=== PATIENT | female | born 1970 | race Caucasian/White ===

== ENCOUNTER → 2016-09-20 | Outpatient (CLI) | payer BC ==
[~2016-09-20] MED LIST: ALDACTAZIDE 25/1 TAB PO; AMLODIPINE-BENA1 CA1 PO; BACITRACIN30 GM TOP; EFFEXOR PO; FLEXERIL PO; FUROSEMIDE40 MG PO; HCTZ PO; HYDROCHLOROTHIA25 MG PO; IBUPROFEN PO; K-DUR20 ME1; K-DUR20 ME1 PO; LASIX PO; LIPITOR PO; LODINE XL PO; LOTREL 5/10 MG1 CAP PO; PERCOCET5/325 PO; PROZAC PO; SEROQUEL PO; ULTRAM PO; VICODIN 5/500 T1 TAB PO
== END | disposition home or self-care (01) ==
LOC: CECH 13:00
DX: R01.1 Cardiac murmur, unspecified (principal)
CPT/HCPCS: 93306